=== PATIENT | female | born 1930 | race Caucasian/White ===

== ENCOUNTER 2018-04-28 16:55 | Emergency (ER) | payer MEDICARE, OTHER ==
[2018-04-28] MEDS ORDERED: Aspirin 81 MG Tab.Chew PO ONE (18:12)
--- NOTE | 2018-04-28 18:18 | EDM.PDOC ---
ED HPI GENERAL MEDICAL PROBLEM - General Chief Complaint: Cardiovascular Problem Stated Complaint: CHEST DISCOMFORT/SQUEEZING SENSATION EARLIER Time Seen by Provider: 04/28/18 18:00 Source of Information: Reports: Patient, RN History Limitations: Reports: Other (no old records, [place]) - History of Present Illness INITIAL COMMENTS - FREE TEXT/NARRATIVE: 87 yo female on no meds presents after a brief 30 sec spell early this morning in which she lost her vision and had a funny feeling in her upper/anterior chest. After that and since she is fully back to her usual self. She smoked until the 70's and quit. Has not had blood work in a long time. Is visiting for about a week from [place]. Her son talked her into coming now nearly 12 hrs after the episode. Onset: Today Onset Date: 04/28/18 Onset Time: 08:00 Duration: Minutes: (0.5 minutes estimated duration. ) Location: Reports: Face (eyes), Chest Quality: Reports: Pressure (chest) Severity: Mild Improves with: Reports: Other (time) Worsens with: Reports: Other (unknown) Context: Reports: Other (unknown) Associated Symptoms: Reports: Chest Pain, Other (loss of vision both eyes.). Denies: Nausea/Vomiting Treatments CLINICAL DATA MANAGEMENT DIRECTOR: Reports: Other (see below) (none) - Related Data Allergies Allergy/AdvReac Type Severity Reaction Status Date / Time bee venom protein (honey bee) Allergy Anaphylactic Verified 04/28/18 17:51 Shock erythromycin base Allergy Hives Verified 04/28/18 17:51 [From E-Mycin] fluvastatin [From Lescol] Allergy Weakness Verified 04/28/18 17:51 Penicillins Allergy Hives Verified 04/28/18 17:51 Home Meds: Home Meds NK [No Known Home Meds] 04/28/18 [History] Past Medical History HEENT History: Reports: Allergic Rhinitis, Cataract, Hard of Hearing Genitourinary History: Reports: Other (See Below) Other Genitourinary History: stress incontinence COAL HIKER History: Reports: Psychiatric History: Reports: PTSD Oncologic (Cancer) History: Reports: Colon - Past Surgical History HEENT Surgical History: Reports: Cataract Surgery, Tonsillectomy GI Surgical History: Reports: Colon, Colonoscopy Other GI Surgeries/Procedures: colon cancer Social & Family History - Tobacco Use Smoking Status *Q: Former Smoker Used Tobacco, but Quit: Yes Month/Year Tobacco Last Used: 1974 - Caffeine Use Caffeine Use: Reports: Coffee - Recreational Drug Use Recreational Drug Use: No ED ROS GENERAL - Review of Systems Review Of Systems: See Below Constitutional: Reports: No Symptoms HEENT: Reports: Vision Change (loss, transient) Respiratory: Reports: No Symptoms Cardiovascular: Reports: Chest Pain (upper/anterior-lasted same duration as her vision loss.) GI/Abdominal: Reports: No Symptoms : Reports: No Symptoms Musculoskeletal: Reports: No Symptoms Skin: Reports: No Symptoms Neurological: Reports: Other (See HPI) Psychiatric: Reports: No Symptoms ED EXAM, GENERAL - Physical Exam Exam: See Below Exam Limited By: No Limitations General Appearance: Alert, WD/WN, No Apparent Distress Eye Exam: Bilateral Eye: EOMI, Normal Inspection, PERRL Ears: Normal External Exam, Other (hearing aids bilat.) Ear Exam: Bilateral Ear: Auricle Normal Nose: Normal Inspection, Normal Mucosa, No Blood Throat/Mouth: Normal Inspection, Normal Lips, Normal Oropharynx, Normal Voice, No Airway Compromise Head: Atraumatic, Normocephalic Neck: Normal Inspection, Supple, Non-Tender, Other (no carotid bruits) Respiratory/Chest: No Respiratory Distress, Lungs Clear, Normal Breath Sounds, No Accessory Muscle Use Cardiovascular: Regular Rate, Rhythm, No Edema GI/Abdominal: Normal Bowel Sounds, Soft, Non-Tender, No Distention Back Exam: Normal Inspection. No: CVA Tenderness (R), CVA Tenderness (L) Extremities: Normal Inspection, Normal Range of Motion, Non-Tender, No Pedal Edema Neurological: Alert, Oriented, CN II-XII Intact, Normal Cognition, No Motor/ Sensory Deficits Psychiatric: Normal Affect, Normal Mood Skin Exam: Warm, Dry, Intact, Normal Color, No Rash Lymphatic: No Adenopathy Course - Vital Signs Text/Narrative:: Discussed risks/benefits of overnight hospital stay vs. outpatient work up. Patient wants to go home and follow up as outpatient when she returns home. Last Recorded V/S: Last Vital Signs Temp 36.6 C 04/28/18 17:44 Pulse 77 04/28/18 18:05 Resp 16 04/28/18 18:05 BP 139/76 04/28/18 18:05 Pulse Ox 96 06/06/18 18:05 - Orders/Labs/Meds Orders: Active Orders 24 hr Category Date Time Status Cardiac Monitoring [RC] .As Directed Care 04/28/18 18:04 Active Labs: Laboratory Tests 04/28/18 04/28/18 Range/Units 18:12 18:12 WBC 3.8 L (4.5-11.0) K/uL RBC 3.67 (3.30-5.50) M/uL Hgb 11.5 L (12.0-15.0) g/dL Hct 35.0 L (36.0-48.0) % MCV 95 (80-98) fL MCH 31 (27-31) pg MCHC 33 (32-36) % Plt Count 279 (150-400) K/uL Sodium 138 L (140-148) mmol/L Potassium 3.8 (3.6-5.2) mmol/L Chloride 102 (100-108) mmol/L Carbon Dioxide 26 (21-32) mmol/L Anion Gap 13.8 (5.0-14.0) mmol/L BUN 11 (7-18) mg/dL Creatinine 0.9 (0.6-1.0) mg/dL Est Cr Clr Drug Dosing 33.23 mL/min Estimated GFR (MDRD) 59 L (>60) Glucose 97 (74-106) mg/dL Calcium 8.5 (8.5-10.1) mg/dL Troponin I < 0.017 (0.000-0.056) ng/mL Meds: Medications Discontinued Medications Generic Name Dose Route Start Last Admin Trade Name Freq PRN Reason Stop Dose Admin Aspirin 324 mg 04/28/18 18:12 04/28/18 19:02 Aspirin PO 04/28/18 18:13 324 mg ONETIME ONE Administration Departure - Departure Time of Disposition: 19:31 Disposition: Home, Self-Care 01 Condition: Fair Clinical Impression: TIA (transient ischemic attack) Qualifiers: Transient cerebral ischemia type: amaurosis fugax Qualified Code(s): G45.3 - Amaurosis fugax Referrals: PCP,None [Primary Care Provider] - Forms: ED Department Discharge - My Orders Last 24 Hours: My Active Orders 04/28/18 18:04 Cardiac Monitoring [RC] .As Directed - Assessment/Plan Last 24 Hours: My Active Orders 04/28/18 18:04 Cardiac Monitoring [RC] .As Directed
== END 2018-04-28 20:11 | disposition home or self-care (01) ==
LOC: JP.ED 16:55
DX: G45.3 Amaurosis fugax (principal); Z88.1 Allergy status to other antibiotic agents; Z88.8 Allergy status to other drugs, medicaments and biological substances; Z88.0 Allergy status to penicillin; Z87.891 Personal history of nicotine dependence
CPT/HCPCS: 36415; 80048; 84484; 85027; 99285; A9270